=== PATIENT | female | born 1995 | race African-American/Black ===

== ENCOUNTER 2018-02-18 21:25 | Outpatient (CLI) | payer BC ==
[2018-02-18 22:40] VITALS: BP 120/61; PULSE 110; RESP 16; TEMP 97.1
[2018-02-18 22:43] LABS: Appearance,Urine Cloudy (Clear); Bacteria,Urine Rare /hpf; Bilirubin,Urine Negative (Negative); Blood,Urine Negative (Negative); Color,Urine Yellow; Glucose,Urine (UA) Negative (Negative); Ketones,Urine Trace (Negative); Leukocyte Esterase,Urine Moderate (Negative); Mucus,Urine Many /hpf; Nitrite,Urine Negative (Negative); PH, Urine 6.5 (5.0-8.0); Protein,Urine 1+ (Negative); RBC,Urine 3 /hpf (0-5); Specific Gravity,Urine 1.031 (1.001-1.035); Squamous Epithelial Cell,Urine 11 /hpf (0-4); WBC,Urine 11 /hpf (0-5)
--- NOTE | 2018-02-21 09:00 | P.MSEPDOC ---
Presenting Problems - Arrival Data Date of Arrival on Unit: 02/18/18 Time of Arrival on Unit: 21:25 Mode of Transport: Ambulatory - Complaint OB-Reason for Admission/Chief Complaint: Pain Comment: pelvic pressure 01/08 Medical History - Information : 3 Para: 2 Term: 2 : 0 Abortions: Spontaneous or Elective: 0 Number of Living Children: 2 - Gestational Age Gestational Age by MACHELLE (wks/days): 28 Weeks and 0 Days - History Comment: pt DOM, had care in [place] but hasn't seen her OB since . Pt just moved here. Review of Systems - Review of Systems Constitutional: No problems Breast: No problems ENT: No problems Cardiovascular: No problems Respiratory: No problems Gastrointestinal: No problems Genitourinary: No problems Musculoskeletal: No problems Neurological: No problems Skin: No problems Vital Signs - Temperature Temperature: 97.1 F Temperature Source: Temporal Artery Scan - Pulse Right Sitting Brachial Pulse Rate: 110 Pulse Assessment Method: Automatic Cuff - Respirations Respiratory Rate: 16 Oxygen Delivery Method: Room Air - Blood Pressure Right Arm Sitting Blood Pressure: 120/61 Blood Pressure Mean: 80 Blood Pressure Source: Automatic Cuff Medical Screen Scoring (Pre) - Cervical Exam Dilation: 0 cm = 0 Membranes: Intact - Uterine Contractions Frequency: N/A Duration: N/A Intensity: N/A - Maternal Vital Signs Maternal Temperature: N/A Signs of Preeclampsia: N/A Maternal Respirations: N/A - Pain Assessment Pain Location and Character: Pelvic Pain Scale Used: Numeric (1 - 10) Pain Intensity: 9 Pain Management Goal: 4 Pain Description: *Acute, Pressure Pain Radiation Location: n/a Pain Frequency: Daily Pain Duration: 3 Pain Duration Units: Days Pain Behavior: None Exhibited, Vocalization Pain Aggravating Factors: Activity - Assessment Baseline FHR: 145 Heart Rate - NICHD Category: Category I (Normal) = 0 NST: Reactive Position: N/A Station: N/A - Total Score Total Score (Pre): 0 - Level of Risk Level of Risk: Low (0-5) Physician Notification (Pre) - Physician Notified Physician Notified Date: 02/18/18 Physician Notified Time: 22:01 Physician/Practitioner Notifed:: navi Spoke With: navi New Order Received: Yes - Notification Comment Comment: UA and SVE. If closed and UA WNL, d/c home with orders for pt to continue seeing her OB until she establishes care here. Physician Notification (Post) - Physician Notified Physician Notified Date: 02/18/18 Physician Notified Time: 22:52 Physician/Practitioner Notified:: navi Spoke With: navi New Order Received: Yes - Notification Comment Comment: d/c home Disposition - Disposition OB Disposition: Discharge to home Discharge Date: 02/18/18 Discharge Time: 22:57 I agree with the RN Medical Screening Exam: Yes Risk & Benefit of care provided described in d/c instruction: Yes Diagnosis: RELATED CONDITIONS, UNSPECIFIED, THIRD TRIMESTER
== END 2018-02-18 22:57 | disposition home or self-care (01) ==
LOC: FBPOP 21:25
PROVIDERS: ATTEND Obstetrics & Gynecology
DX: O26.93 Pregnancy related conditions, unspecified, third trimester (principal); Z3A.28 28 weeks gestation of pregnancy
CPT/HCPCS: 59025; 81001; 99213

== ENCOUNTER 2018-03-28 20:50 | Outpatient (CLI) | payer OTHER ==
[2018-03-28 21:35] VITALS: BP 111/78; PULSE 112; RESP 16; TEMP 96.7
--- NOTE | 2018-04-07 12:02 | P.MSEPDOC ---
Presenting Problems - Arrival Data Date of Arrival on Unit: 03/28/18 Time of Arrival on Unit: 20:50 Mode of Transport: Ambulatory - Complaint OB-Reason for Admission/Chief Complaint: Rule Out PROM Medical History - Information : 3 Para: 2 Term: 2 : 0 Abortions: Spontaneous or Elective: 0 Number of Living Children: 2 - Gestational Age Gestational Age by MACHELLE (wks/days): 33 Weeks and 3 Days Review of Systems - Review of Systems Constitutional: No problems Breast: No problems ENT: No problems Cardiovascular: No problems Respiratory: No problems Gastrointestinal: No problems Genitourinary: No problems Musculoskeletal: No problems Neurological: No problems Skin: No problems Vital Signs - Temperature Temperature: 96.7 F Temperature Source: Temporal Artery Scan - Pulse Right Brachial Pulse Rate: 112 Pulse Assessment Method: Automatic Cuff - Respirations Respiratory Rate: 16 Oxygen Delivery Method: Room Air O2 Sat by Pulse Oximetry: 97 - Blood Pressure Right Arm Blood Pressure: 111/78 Blood Pressure Mean: 89 Blood Pressure Source: Automatic Cuff Medical Screen Scoring (Pre) - Cervical Exam Dilation: Exam Deferred Effacement: Exam Deferred - Uterine Contractions Frequency: N/A - Maternal Vital Signs Maternal Temperature: N/A Maternal Blood Pressure: N/A Signs of Preeclampsia: N/A - Pain Assessment Pain Scale Used: Numeric (1 - 10) Pain Intensity: 0 - Assessment Baseline FHR: 140 Heart Rate - NICHD Category: Category I (Normal) = 0 NST: Reactive Position: N/A Station: N/A - Total Score Total Score (Pre): 0 - Level of Risk Level of Risk: Low (0-5) Physician Notification (Pre) - Physician Notified Physician Notified Date: 03/28/18 Physician Notified Time: 21:25 Physician/Practitioner Notifed:: Dr. Love Spoke With: Dr. Love New Order Received: Yes - Notification Comment Comment: Dr. Love given report on pt in tr. Pt c/o. VS wnl. Reactive nst. no contractions noted. amnisure negative. Orders recieved to d/c pt to home. Disposition - Disposition OB Disposition: Discharge to home Discharge Date: 03/28/18 Discharge Time: 21:35 I agree with the RN Medical Screening Exam: Yes Risk & Benefit of care provided described in d/c instruction: Yes Diagnosis: FALSE LABOR BEFORE 37 COMPLETED WEEKS OF GEST, THIRD TRI
== END 2018-03-28 21:35 | disposition home or self-care (01) ==
LOC: FBPOP 20:50
PROVIDERS: ATTEND Obstetrics & Gynecology
DX: O47.03 False labor before 37 completed weeks of gestation, third trimester (principal); Z3A.33 33 weeks gestation of pregnancy
CPT/HCPCS: 59025; 84112; G0463; 99213

== ENCOUNTER 2020-08-03 13:22 | Emergency (ER) | payer OTHER ==
--- NOTE | 2020-08-03 13:38 | ED ---
General Adult HPI - General Source: patient, RN notes reviewed Mode of arrival: ambulatory Limitations: no limitations <Robby Sifuentes - Last Filed: 08/03/20 13:44> <Ovi Tarango - Last Filed: 08/03/20 14:57> - General Stated complaint: Covid+,SOB Time Seen by Provider: 08/03/20 13:35 - History of Present Illness Initial comments: 24-year-old female presents emergency dept chief complaint of fever cough congestion. Patient states that she recently just positive for covid Patient's had increasing shortness of breath. Patient denies any nausea vomiting or constipation. Patient states that she has no significant past medical history. Denies any daily medications or drug ALLERGIES. (Robby Sifuentes) This is a 24-year-old female who states she started having symptoms on Monday of complete body aches feeling little bit warm and a mild headache. Patient states the symptoms continued and got worse until this morning and she decided come in to get evaluated. Patient states she has some shortness of breath with exertion. Patient denies any chest pain or palpitations. Patient denies any abdominal pain patient denies nausea vomiting diarrhea. Patient denies any diabetes. Patient denies any breathing problems. (Ovi Tarango) - Related Data Home Medications Medication Instructions Recorded Confirmed Pnv No.95/Ferrous Fum/Folic AC 1 tab PO ONCE 03/28/18 03/28/18 [ Multivitamin Tablet] Allergies Allergy/AdvReac Type Severity Reaction Status Date / Time No Known Allergies Allergy Verified 08/03/20 13:35 Review of Systems ROS Other: All systems not noted in ROS Statement are negative. <Robby Sifuentes - Last Filed: 08/03/20 13:44> ROS Other: All systems not noted in ROS Statement are negative. <Ovi Tarango - Last Filed: 08/03/20 14:57> ROS Statement: Those systems with pertinent positive or pertinent negative responses have been documented in the HPI. Past Medical History History of Any Multi-Drug Resistant Organisms: None Reported <Robby Sifuentes - Last Filed: 08/03/20 13:44> General Exam General appearance: alert, in no apparent distress Head exam: Present: atraumatic, normocephalic, normal inspection Eye exam: Present: normal appearance, PERRL, EOMI. Absent: scleral icterus, conjunctival injection, periorbital swelling ENT exam: Present: normal exam, normal oropharynx, mucous membranes moist Neck exam: Present: normal inspection, full ROM. Absent: tenderness, meningismus, lymphadenopathy Respiratory exam: Present: normal lung sounds bilaterally. Absent: respiratory distress, wheezes, rales, rhonchi, stridor Cardiovascular Exam: Present: regular rate, normal rhythm, normal heart sounds. Absent: systolic murmur, diastolic murmur, rubs, gallop, clicks <Robby Sifuentes - Last Filed: 08/03/20 13:44> <Ovi Tarango - Last Filed: 08/03/20 14:57> - General Exam Comments Initial Comments: GENERAL: Patient is well-developed and well-nourished. Patient is nontoxic and well- hydrated and is in mild distress. ENT: Neck is soft and supple. No significant lymphadenopathy is noted. Oropharynx is clear. Moist mucous membranes. Neck has full range of motion without eliciting any pain. EYES: The sclera were anicteric and conjunctiva were pink and moist. Extraocular movements were intact and pupils were equal round and reactive to light. Eyelids were unremarkable. PULMONARY: Unlabored respirations. Good breath sounds bilaterally. No audible rales rhonchi or wheezing was noted. CARDIOVASCULAR: There is a regular rate and rhythm without any murmurs gallops or rubs. ABDOMEN: Soft and nontender with normal bowel sounds. SKIN: Skin is clear with no lesions or rashes and otherwise unremarkable. NEUROLOGIC: Patient is alert and oriented x3. Cranial nerves II through XII are grossly intact. Motor and sensory are also intact. Normal speech, volume and content. Symmetrical smile. MUSCULOSKELETAL: Normal extremities with adequate strength and full range of motion. No lower extremity swelling or edema. No calf tenderness. LYMPHATICS: No significant lymphadenopathy is noted PSYCHIATRIC: Normal psychiatric evaluation. (Ovi Tarango) Course Vital Signs 08/03/20 13:36 Temperature 98.2 F Pulse Rate 102 H Respiratory 18 Rate Blood Pressure 118/87 O2 Sat by Pulse 99 Oximetry Medical Decision Making <Ovi Tarango - Last Filed: 08/03/20 14:57> - Medical Decision Making Patient is COVID positive (Ovi Tarango) - Lab Data Lab Results 08/03/20 Range/Units 13:40 Coronavirus (PCR) Detected A (Not Detectd) Disposition <Robby Sifuentes - Last Filed: 08/03/20 13:44> Is patient prescribed a controlled substance at d/c from ED?: No Time of Disposition: 14:56 <Ovi Tarango - Last Filed: 08/03/20 14:57> Clinical Impression: COVID-19 Disposition: HOME SELF-CARE Instructions (If sedation given, give patient instructions): Coronavirus Disease 2019 (COVID-19) Referrals: Erik Shin [Primary Care Provider] - 1-2 days
[2020-08-03 13:40] VITALS: RESP 18
[2020-08-03] MEDS ORDERED: BAMLANIVIMAB (EUA) 700 MG, ETESEVIMAB (EUA) 1,400 MG in SODIUM CHLORIDE 0.9% 50 ML IVPB ONE (15:30)
[2020-08-03] MEDS ORDERED: ACETAMINOPHEN TAB 500 MG TAB PO STA (15:41)
[2020-08-03] MEDS ORDERED: SODIUM CHLORIDE 0.9% 50 ML IVPB ONE (16:30)
[2020-08-03 17:13] VITALS: BP 105/71; PULSE 69; TEMP 97.9
== END 2020-08-03 17:13 | disposition home or self-care (01) ==
LOC: EC 13:22
DX: U07.1 COVID-19 (principal)
CPT/HCPCS: 87635; 99284

== ENCOUNTER 2021-01-24 12:54 | Emergency (ER) | payer OTHER ==
[2021-01-24 13:33] VITALS: BP 108/72; PULSE 86; RESP 18; TEMP 98.2
--- NOTE | 2021-01-24 14:12 | ED ---
General Adult HPI - General Chief complaint: Urogenital Stated complaint: UTI Time Seen by Provider: 01/24/21 13:46 Source: patient Mode of arrival: ambulatory Limitations: no limitations - History of Present Illness Initial comments: This is a 25-year-old well-appearing black female that presents to the emergency room with complaints of dysuria with some painful vaginal blisters. She states that she has not had a history of herpes in the past. She is sexually active with her only and does not use protection. She was tested for sexually transmitted infections recently and she states with negative results. She states that she has had a couple of lesions to her labia that burn and hurt with palpation and has had some vaginal discharge. -: days(s) Severity scale (1-10): 9 Quality: burning Consistency: constant Improves with: none Worsens with: none Associated Symptoms: other (dysuria with vaginal lesions) Treatments Prior to Arrival: none - Related Data Home Medications Medication Instructions Recorded Confirmed Pnv No.95/Ferrous Fum/Folic AC 1 tab PO ONCE 03/28/18 03/28/18 [ Multivitamin Tablet] Previous Rx's Medication Instructions Recorded Sulfamethox-Tmp 800-160Mg [Bactrim 1 each PO Q12HR 3 Days #6 tab 01/24/21 Ds] metroNIDAZOLE [Flagyl] 500 mg PO BID 7 Days #14 tab 01/24/21 valACYclovir HCL 1,000 mg PO BID 7 Days #14 tab 01/24/21 Allergies Allergy/AdvReac Type Severity Reaction Status Date / Time No Known Allergies Allergy Verified 01/24/21 13:33 Review of Systems ROS Statement: Those systems with pertinent positive or pertinent negative responses have been documented in the HPI. ROS Other: All systems not noted in ROS Statement are negative. Past Medical History Past Medical History: No Reported History History of Any Multi-Drug Resistant Organisms: None Reported Past Surgical History: No Surgical Hx Reported Past Psychological History: No Psychological Hx Reported Smoking Status: Never smoker Past Alcohol Use History: None Reported Past Drug Use History: None Reported General Exam Limitations: no limitations General appearance: alert, in no apparent distress Head exam: Present: atraumatic, normocephalic, normal inspection Eye exam: Present: normal appearance, PERRL, EOMI. Absent: scleral icterus, conjunctival injection, periorbital swelling ENT exam: Present: normal exam, normal oropharynx, mucous membranes moist Neck exam: Present: normal inspection, full ROM. Absent: tenderness, meningismus, lymphadenopathy Respiratory exam: Present: normal lung sounds bilaterally. Absent: respiratory distress, wheezes, rales, rhonchi, stridor Cardiovascular Exam: Present: regular rate, normal rhythm, normal heart sounds. Absent: systolic murmur, diastolic murmur, rubs, gallop, clicks GI/Abdominal exam: Present: soft, normal bowel sounds. Absent: distended, tenderness, guarding, rebound, rigid External exam: Present: lesions (approx. 2 mm lesions at the introitus of the vagina), other (Watery vaginal discharge). Absent: swelling Speculum exam: Present: other (Patient declined speculum exam related to pain and discomfort from lesions.) Neurological exam: Present: alert, oriented X3, CN II-XII intact Psychiatric exam: Present: normal affect, normal mood Skin exam: Present: warm, dry, intact, normal color. Absent: rash Course Vital Signs 01/24/21 13:30 Temperature 98.2 F Pulse Rate 86 Respiratory 18 Rate Blood Pressure 108/72 O2 Sat by Pulse 99 Oximetry Medical Decision Making - Medical Decision Making Patient presents to the emergency room with painful lesions to her labia. She states that she's also had a vaginal discharge. She denies any unprotected sex other than with her . She has not had history of herpetic lesions in the past. The lesions appear to be herpatic she will be treated with valcyclovir. She also has a urinary tract infection and will be treated with Bactrim. Vaginal discharge is malodorous consistent with bacterial vaginosis and she will be prescribed Flagyl. Directed to follow up with her primary care doctor in 1 week. Return to the emergency room with any new or worsening symptoms. Use a condom for the next 14 days and until lesions are cleared. - Lab Data Lab Results 01/24/21 01/24/21 Range/Units 14:07 14:07 Urine Color Yellow Urine Appearance Cloudy H (Clear) Urine pH 5.5 (5.0-8.0) Ur Specific [place] 1.029 (1.001-1.035) Urine Protein 1+ H (Negative) Urine Glucose (UA) Negative (Negative) Urine Ketones Negative (Negative) Urine Blood Trace H (Negative) Urine Nitrite Negative (Negative) Urine Bilirubin Negative (Negative) Urine Urobilinogen 4.0 (<2.0) mg/dL Ur Leukocyte Esterase Large H (Negative) Urine RBC 10 H (0-5) /hpf Urine WBC 61 H (0-5) /hpf Ur Squamous Epith Cells 28 H (0-4) /hpf Hyaline Casts 2 (0-2) /lpf Urine Mucus Many H (None) /hpf Urine HCG, Qual Not Detected (Not Detectd) Disposition Clinical Impression: Genital herpes simplex, Vaginal Discharge, Bacterial vaginosis, UTI (urinary tract infection) Disposition: HOME SELF-CARE Condition: Good Instructions (If sedation given, give patient instructions): Bacterial Vaginosis (ED), Genital Herpes Simplex (ED), Urinary Tract Infection in Women (ED) Additional Instructions: Take medication as prescribed. Practice safe sex using condoms. 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 Prescriptions: Sulfamethox-Tmp 800-160Mg [Bactrim Ds] 1 each PO Q12HR 3 Days #6 tab metroNIDAZOLE [Flagyl] 500 mg PO BID 7 Days #14 tab valACYclovir HCL 1,000 mg PO BID 7 Days #14 tab Is patient prescribed a controlled substance at d/c from ED?: No Referrals: None,Stated [Primary Care Provider] - 1-2 days Time of Disposition: 14:41
[2021-01-24 14:32] LABS: Appearance,Urine Cloudy (Clear); Bilirubin,Urine Negative (Negative); Blood,Urine Trace (Negative); Color,Urine Yellow; Glucose,Urine (UA) Negative (Negative); Hyaline Casts,Urine 2 /lpf (0-2); Ketones,Urine Negative (Negative); Leukocyte Esterase,Urine Large (Negative); Mucus,Urine Many /hpf; Nitrite,Urine Negative (Negative); PH, Urine 5.5 (5.0-8.0); Protein,Urine 1+ (Negative); RBC,Urine 10 /hpf (0-5); Specific Gravity,Urine 1.029 (1.001-1.035); Squamous Epithelial Cell,Urine 28 /hpf (0-4); WBC,Urine 61 /hpf (0-5)
[2021-01-26 07:22] LABS: C. trachomatis,PCR Negative (Neg,Equiv); Chlamydia trachomatis Source Urine; N. gonorrhoeae,PCR Negative (Neg,Equiv); Neisseria Source Urine
== END 2021-01-24 15:11 | disposition home or self-care (01) ==
LOC: EC 12:54
DX: A60.09 Herpesviral infection of other urogenital tract (principal); N76.0 Acute vaginitis; N39.0 Urinary tract infection, site not specified
CPT/HCPCS: 81001; 81025; 87086; 87491; 87591; 99283

== ENCOUNTER 2021-11-10 09:19 | Emergency (ER) | payer OTHER ==
[2021-11-10 09:25] VITALS: BP 112/73; PULSE 74; RESP 18; TEMP 96.9
--- NOTE | 2021-11-10 10:20 | ED ---
Upper Extremity HPI - General Chief Complaint: Extremity Injury, Upper Stated Complaint: Lt shoulder pain/possible UTI Time Seen by Provider: 11/10/21 09:28 Source: patient, RN notes reviewed Mode of arrival: ambulatory Limitations: no limitations - History of Present Illness Initial Comments: This a 26-year-old female presents emergency Department with tramadol left shoulder pain. Patient states that she has been having increasing pain last few weeks. 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 Patient states that she has no known injury (the family can symptoms worse. Patient denies any paresthesias she is right-hand dominant. Denies any focal weakness states it just hurts to lift. She states certain movements or worsen others. Patient also complaint of possible UTI states that she's had urinary frequency and dysuria she is concerned that she may have an STD. Patient denies any fevers chills back pain flank pain - Related Data Home Medications Medication Instructions Recorded Confirmed Pnv No.95/Ferrous Fum/Folic AC 1 tab PO ONCE 03/28/18 03/28/18 [ Multivitamin Tablet] Previous Rx's Medication Instructions Recorded Sulfamethox-Tmp 800-160Mg [Bactrim 1 each PO Q12HR 3 Days #6 tab 01/24/21 Ds] metroNIDAZOLE [Flagyl] 500 mg PO BID 7 Days #14 tab 01/24/21 valACYclovir HCL [Valacyclovir] 1,000 mg PO BID 7 Days #14 tab 01/24/21 Ibuprofen [Motrin] 600 mg PO Q8HR PRN #20 tab 11/10/21 predniSONE 50 mg PO DAILY #5 tab 11/10/21 Allergies Allergy/AdvReac Type Severity Reaction Status Date / Time No Known Allergies Allergy Verified 11/10/21 09:25 Review of Systems ROS Statement: Those systems with pertinent positive or pertinent negative responses have been documented in the HPI. ROS Other: All systems not noted in ROS Statement are negative. Past Medical History Past Medical History: No Reported History History of Any Multi-Drug Resistant Organisms: None Reported Past Surgical History: No Surgical Hx Reported Past Psychological History: No Psychological Hx Reported Smoking Status: Never smoker Past Alcohol Use History: None Reported Past Drug Use History: None Reported General Exam Limitations: no limitations General appearance: alert, in no apparent distress Head exam: Present: atraumatic, normocephalic, normal inspection Eye exam: Present: normal appearance, PERRL, EOMI. Absent: scleral icterus, conjunctival injection, periorbital swelling ENT exam: Present: normal exam, normal oropharynx, mucous membranes moist Neck exam: Present: normal inspection, full ROM. Absent: tenderness, meningismus, lymphadenopathy Respiratory exam: Present: normal lung sounds bilaterally. Absent: respiratory distress, wheezes, rales, rhonchi, stridor Cardiovascular Exam: Present: regular rate, normal rhythm, normal heart sounds. Absent: systolic murmur, diastolic murmur, rubs, gallop, clicks GI/Abdominal exam: Present: soft, normal bowel sounds. Absent: distended, tenderness, guarding, rebound, rigid Extremities exam: Present: other (Left shoulder there is pain with external rotation, abduction, extension. Neurovascular intact equal library clerical assistant strength palpation over the AC joint, and bicep tendon) Back exam: Absent: CVA tenderness (R), CVA tenderness (L) Course Vital Signs 11/10/21 09:21 Temperature 96.9 F L Pulse Rate 74 Respiratory 18 Rate Blood Pressure 112/73 O2 Sat by Pulse 97 Oximetry Medical Decision Making - Medical Decision Making 26-year-old presented for possible UTI, left shoulder pain. Urinalysis does not reveal different evidence of urinary tract infection gonorrhea extremity testing was added, negative hCG. X-ray does not show any evidence of acute abnormality patient will be started on anti-inflammatories for the shoulder tenderness will be referred to orthopedics. - Lab Data Lab Results 11/10/21 11/10/21 Range/Units 09:43 09:43 Urine Color Yellow Urine Appearance Cloudy H (Clear) Urine pH 6.0 (5.0-8.0) Ur Specific [place] 1.027 (1.001-1.035) Urine Protein Trace H (Negative) Urine Glucose (UA) Negative (Negative) Urine Ketones Negative (Negative) Urine Blood Negative (Negative) Urine Nitrite Negative (Negative) Urine Bilirubin Negative (Negative) Urine Urobilinogen 3.0 (<2.0) mg/dL Ur Leukocyte Esterase Trace H (Negative) Urine RBC 2 (0-5) /hpf Urine WBC 9 H (0-5) /hpf Ur Squamous Epith Cells 12 H (0-4) /hpf Urine Bacteria Occasional H (None) /hpf Urine Mucus Many H (None) /hpf Urine HCG, Qual Not Detected (Not Detectd) Disposition Clinical Impression: Left shoulder tendinitis Disposition: HOME SELF-CARE Condition: Stable Instructions (If sedation given, give patient instructions): Tendinitis (ED) Additional Instructions: Please return to the Emergency Department if symptoms worsen or any other concerns. Prescriptions: Ibuprofen [Motrin] 600 mg PO Q8HR PRN #20 tab PRN Reason: Pain predniSONE 50 mg PO DAILY #5 tab Is patient prescribed a controlled substance at d/c from ED?: No Referrals: Hal Alcazar MD [Primary Care Provider] - 1-2 days Jarrett Bell MD [STAFF PHYSICIAN] - 1-2 days Time of Disposition: 11:05
--- NOTE | 2021-11-10 10:33 | XR ---
EXAMINATION TYPE: XR shoulder complete LT DATE OF EXAM: 11/10/2021 COMPARISON: NONE HISTORY: Pain TECHNIQUE: Three views are submitted. FINDINGS: The osseous structures are intact. There is no acute fracture or dislocation. The AC joint is maint ained. IMPRESSION: 1. No acute process.
[2021-11-10 10:51] LABS: Appearance,Urine Cloudy (Clear); Bacteria,Urine Occasional /hpf; Bilirubin,Urine Negative (Negative); Blood,Urine Negative (Negative); Color,Urine Yellow; Glucose,Urine (UA) Negative (Negative); Ketones,Urine Negative (Negative); Leukocyte Esterase,Urine Trace (Negative); Mucus,Urine Many /hpf; Nitrite,Urine Negative (Negative); Protein,Urine Trace (Negative); RBC,Urine 2 /hpf (0-5); Specific Gravity,Urine 1.027 (1.001-1.035); Squamous Epithelial Cell,Urine 12 /hpf (0-4); WBC,Urine 9 /hpf (0-5)
[2021-11-11 13:34] LABS: C. trachomatis,PCR Positive (Neg,Equiv); Chlamydia trachomatis Source Urine; N. gonorrhoeae,PCR Negative (Neg,Equiv); Neisseria Source Urine
== END 2021-11-10 11:23 | disposition home or self-care (01) ==
LOC: EC 09:19
DX: M77.8 Other enthesopathies, not elsewhere classified (principal)
CPT/HCPCS: 81001; 81025; 87491; 87591; 99283